=== PATIENT | male | born 1985 | race Hispanic/Latino ===

== ENCOUNTER 2019-02-21 21:52 | Emergency (ER) | payer OTHER ==
[2019-02-21 22:13] VITALS: BP 123/69; PULSE 68; RESP 16; TEMP 98.4; O2SAT 99
--- NOTE | 2019-02-21 23:17 | ED PDOC ---
Upper Extremity Pain/Injury Time Seen by Provider: 02/21/19 22:15 Chief Complaint (Nursing): Finger,Hand,&Wrist Chief Complaint (Provider): right hand History Per: Patient History/Exam Limitations: no limitations Onset/Duration Of Symptoms: Hrs Current Symptoms Are (Timing): Still Present Quality: "Pain" Pain Scale Rating Of: 7 Additional History Per: Patient Additional Complaint(s): 33 y/o male with no significant medical history, presents with right hand deformity and pain after he punched a wall around 10pm this evening. Past Medical History Reviewed: Historical Data, Nursing Documentation, Vital Signs Vital Signs: Last Vital Signs Temp 98.4 F 02/21/19 22:10 Pulse 68 02/21/19 22:10 Resp 16 02/21/19 22:10 BP 123/69 02/21/19 22:10 Pulse Ox 99 02/21/19 22:10 Primary Care Provider: FAMILY PROVIDER,NO - Medical History PMH: No Chronic Diseases - Surgical History Surgical History: No Surg Hx - Family History Family History: States: Unknown Family Hx - Social History Alcohol: Social Drugs: Denies - Allergies Allergies/Adverse Reactions: Allergies Allergy/AdvReac Type Severity Reaction Status Date / Time No Known Allergies Allergy Verified 02/21/19 22:11 Review of Systems ROS Statement: Except As Marked, All Systems Reviewed And Found Negative Constitutional: Negative for: Fever, Weakness Cardiovascular: Negative for: Chest Pain, Palpitations Respiratory: Negative for: Shortness of Breath, SOB with Exertion Gastrointestinal: Negative for: Nausea, Vomiting, Abdominal Pain Musculoskeletal: Positive for: Hand Pain (Right hand pain and swelling after punching a wall. ) Physical Exam - Reviewed Nursing Documentation Reviewed: Yes Vital Signs Reviewed: Yes - Physical Exam Appears: Positive for: Well, Non-toxic, No Acute Distress Head Exam: Positive for: ATRAUMATIC, NORMAL INSPECTION, NORMOCEPHALIC Skin: Positive for: Normal Color, Warm, DRY Eye Exam: Positive for: Normal appearance, PERRL Neck: Positive for: Normal, Painless ROM, Supple Cardiovascular/Chest: Positive for: Regular Rate, Rhythm Respiratory: Positive for: CNT, Normal Breath Sounds Pulses-Radial (L): 2+ Pulses-Radial (R): 2+ Back: Positive for: Normal Inspection Extremity: Positive for: Tenderness (right hand tenderness pt dorsal aspect of the hand ), Capillary Refill (<2 sc cap refill), Deformity (pos deformity of to 4th and 5th metacarpal area. ), Swelling (dorsal aspect. Patient unable to move 4th and 5th digits.patient has mobility of 1st. 2nd and 3rd ) Neurological/Psych: Positive for: Awake, Alert, Normal Tone, Oriented - ECG O2 Sat by Pulse Oximetry: 99 Medical Decision Making Medical Decision Makin:14 Hand xray reviewed by me: displaced fx of 5th metacarpal bone and fx of 4th metacarpal bone. Dr. Keane called on consult for recommendation. 23:25 Dr. Cassidy recommends patient to stay over night for pre-op testing, OR at 8am. Patient is refusing to stay, he states he will come back to the ED in the morning. Patient is also refusing to have pre-op testing done now, he states he will return in the am. Patient advised to return to ED at 7am, OR time 8am. Advised not to eat or drink 8 hrs prior to arrival to ED. Patient states understanding and agrees with plan. --percocet for pain 23:53 Patient signed out AMA. He was given benefits of stay in hospital and potential risks associated with not returning for repair of fractures. Patient states he understands. Re-iterated importance of no eating and drinking 8 hrs prior to arrival and arrival early to ED for testing. Patient placed in ulnar gutter splint, nuero/charmaine intact post splinting. Patient left with friend, patient states he is taking an uber home. Dr. Horn and Dr. Cassidy aware of patient's plan to return in the am. Disposition - Clinical Impression Clinical Impression: Boxers fracture - Patient ED Disposition Is Patient to be Admitted: No Counseled Patient/Family Regarding: Diagnosis, Need For Followup, Rx Given - Disposition Referrals: Sanford Cassidy MD [Medical Doctor] - Disposition: Against Medical Advice Disposition Time: 23:40 Condition: STABLE Additional Instructions: Return to ED at 7am for pre-op work up and OR. Instructions: Boxer's Fracture - POA Present On Arrival: None
[2019-02-21] MEDS ORDERED: Oxycodone/Acetaminophen 5/325 mg Tab PO STA (23:37)
[2019-02-21] MEDS ORDERED: Oxycodone/Acetaminophen 5/325 mg Tab ONE (23:47)
--- NOTE | 2019-02-22 09:41 | RAD ---
PROCEDURE: Right Hand Radiographs. HISTORY: Injury, hand swelling and pain COMPARISON: None. TECHNIQUE: 3 views obtained. FINDINGS: BONES: There is an oblique mildly displaced fracture traversing the midshaft right 5th metacarpal with dorsal angulation of the proximal aspect of the distal fragment. There is also a relatively nondisplaced oblique fracture traversing the proximal shaft 4th metacarpal. Overlying dorsal soft tissue swelling JOINTS: Normal. No osteoarthritic changes. SOFT TISSUES: As above. OTHER FINDINGS: None. IMPRESSION: There is a mildly displaced fractured midshaft of the right 5th metacarpal and relatively nondisplaced fracture proximal shaft 4th metacarpal.
--- NOTE | 2019-02-22 16:50 | RAD ---
Date of service: 02/21/2019 PROCEDURE: Right Wrist Radiographs. HISTORY: injury COMPARISON: Comparison made with concurrent radiographs of the right hand TECHNIQUE: 4 views obtained. FINDINGS: BONES: There is an oblique mildly displaced fracture traversing the midshaft right 5th metacarpal with dorsal angulation of the proximal aspect of the distal fragment. There is also a relatively nondisplaced oblique fracture traversing the proximal shaft 4th metacarpal. Overlying dorsal soft tissue swelling JOINTS: Normal. No dislocation. SOFT TISSUES: As above OTHER FINDINGS: None. IMPRESSION: There is an oblique mildly displaced fracture traversing the midshaft right 5th metacarpal with dorsal angulation of the proximal aspect of the distal fragment. There is also a relatively nondisplaced oblique fracture traversing the proximal shaft 4th metacarpal. Overlying dorsal soft tissue swelling
== END 2019-02-21 23:46 | disposition left against medical advice (07) ==
LOC: H.ER 21:52
DX: S62.316A Displaced fracture of base of fifth metacarpal bone, right hand, initial encounter for closed fracture (principal); W22.8XXA Striking against or struck by other objects, initial encounter; Y92.89 Other specified places as the place of occurrence of the external cause

== ENCOUNTER 2019-02-22 06:47 | Observation (INO) | payer SELFPAY ==
[2019-02-22] MEDS ORDERED: Sodium Chloride 0.9% 1,000 ML IV STA (07:21)
--- NOTE | 2019-02-22 07:26 | ED PDOC ---
Upper Extremity Pain/Injury Time Seen by Provider: 02/22/19 07:19 Chief Complaint (Provider): Upper Extremity Pain/Injury History Per: Patient History/Exam Limitations: no limitations Onset/Duration Of Symptoms: Hrs Current Symptoms Are (Timing): Still Present Additional Complaint(s): 33 y/o male presents to the ED for right upper extremity injury. Patient was seen last night and diagnosed with a Boxer's fracture to the right hand. Patient was supposed to be admitted for surgery this morning. However, patient wanted to go home and come back this morning. Patient states he has been NPO since 12:30 last night. PMD: no provider Past Medical History Reviewed: Historical Data, Nursing Documentation, Vital Signs - Medical History PMH: No Chronic Diseases - Surgical History Surgical History: No Surg Hx - Family History Family History: States: Unknown Family Hx - Allergies Allergies/Adverse Reactions: Allergies Allergy/AdvReac Type Severity Reaction Status Date / Time No Known Allergies Allergy Verified 02/21/19 22:11 Review of Systems ROS Statement: Except As Marked, All Systems Reviewed And Found Negative Musculoskeletal: Positive for: Arm Pain (boxer fracture surgery) Physical Exam - Reviewed Nursing Documentation Reviewed: Yes Vital Signs Reviewed: Yes - Physical Exam Appears: Positive for: No Acute Distress Extremity: Positive for: Deformity (Right Hand Splinted) Medical Decision Making Medical Decision Making: Time: 719 A/P: -- Will contact Dr. Christina, orthopedist to see if surgery is still scheduled this morning. -- EKG -- CMP -- CBC with Differentials -- PTT -- CXR Two Views -- Sodium Chloride IV 100 mls/r -- Percocet 1 tab PO -- Spoke to Dr. Christina, surgery is still scheduled. Patient will be admitted for surgery. -- Admit to Hospital Scribe Attestation: Documented by Katie Odonnell, acting as a scribe for Kane Zavaleta MD. Provider Scribe Attestation: All medical record entries made by the Scribe were at my direction and personally dictated by me. I have reviewed the chart and agree that the record accurately reflects my personal performance of the history, physical exam, medical decision making, and the department course for this patient. I have also personally directed, reviewed, and agree with the discharge instructions and disposition. Disposition - Clinical Impression Clinical Impression: Boxers fracture - Patient ED Disposition Is Patient to be Admitted: Yes - Disposition Disposition Time: 07:38 Condition: FAIR - Pt Status Changed To: Hospital Disposition Of: Observation - POA Present On Arrival: None
[2019-02-22 08:07] LABS: BASO % 0.4 % (0.0-2.0); EOS # 0.1 K/uL (0.0-0.7); EOS % 1.8 % (0.0-4.0); HEMOGLOBIN 16.4 g/dL (12.0-18.0); LYMPH # 1.5 K/uL (1.0-4.3); LYMPH % 22.2 % (20.0-40.0); MEAN CELL VOLUME 91.4 fl (80.0-94.0); MEAN CORPUSCULAR HEMOGLOBIN 30.7 pg (27.0-31.0); MEAN CORPUSCULAR HGB CONC 33.6 g/dL (33.0-37.0); MEAN PLATELET VOLUME 7.3 fl (7.2-11.7); MONO # 0.4 K/uL (0.0-0.8); MONO % 6.4 % (0.0-10.0); NEUT # 4.7 K/uL (1.8-7.0); NEUT % 69.2 % (50.0-75.0); NRBC % 0.1 % (0.0-0.0); RBC 5.34 Mil/uL (4.40-5.90); RED CELL DISTRIBUTION WIDTH 14.2 % (11.5-14.5); WHITE BLOOD COUNT 6.9 K/uL (4.8-10.8)
[2019-02-22 08:18] LABS: ALB/GLOB RATIO 1.6 (1.0-2.1); ALBUMIN 4.9 g/dL (3.5-5.0); ALT/SGPT 32 U/L (21-72); AST/SGOT 24 U/L (17-59); BLOOD UREA NITROGEN 14 mg/dl (9-20); CALCIUM 9.5 mg/dL (8.4-10.2); GFR NON-AFRICAN AMERICAN > 60
[2019-02-22 08:25] LABS: PROTHROMBIN TIME 11.5 Seconds (9.8-13.1)
--- NOTE | 2019-02-22 08:31 | RAD ---
Date of service: 02/22/2019 HISTORY: Hand fracture COMPARISON: No prior. TECHNIQUE: Chest PA and lateral views FINDINGS: LUNGS: No active pulmonary disease. PLEURA: No significant pleural effusion identified. No pneumothorax apparent. CARDIOVASCULAR: No aortic atherosclerotic calcification present. Normal cardiac size. No pulmonary vascular congestion. OSSEOUS STRUCTURES: No significant abnormalities. VISUALIZED UPPER ABDOMEN: Normal. OTHER FINDINGS: None. IMPRESSION: No active disease.
[2019-02-22 09:13] VITALS: BMI 25.4
[2019-02-22] MEDS ORDERED: Lidocaine 2% w Epi 1:100,000 Inj IJ ONE (09:18)
[2019-02-22] MEDS ORDERED: Lidocaine 1% Inj (20ml) ONE (09:18)
[2019-02-22] MEDS ORDERED: Midazolam 2 MG/2 ML VIAL ONE (09:33)
[2019-02-22] MEDS ORDERED: Propofol 10 mg/ml Inj (20 ML) ONE (09:33)
[2019-02-22] MEDS ORDERED: Sodium Chloride 0.9% 1,000 ML IV ONE (10:12)
--- NOTE | 2019-02-22 11:21 | PCM.SURG1 ---
Surgeon's Initial Post Op Note - Surgeon's Notes Surgeon: siva Flight Agent: none Type of Anesthesia: General LMA Pre-Operative Diagnosis: R 4th and 5th metacarpal fx Operative Findings: see dictation Post-Operative Diagnosis: same Operation Performed: CRPP 4 and 5 metacarpals Specimen/Specimens Removed: none Estimated Blood Loss: EBL {In ML}: 0 Date of Surgery/Procedure: 02/22/19 Time of Surgery/Procedure: 10:00
[2019-02-22] MEDS ORDERED: Oxycodone/Acetaminophen 5/325 mg Tab PO PRN (11:24)
[2019-02-22] MEDS ORDERED: Sodium Chloride 0.9% 1,000 ML IV SCH (11:30)
[2019-02-22] MEDS ORDERED: Oxycodone/Acetaminophen 5/325 mg Tab ONE (11:33)
--- NOTE | 2019-02-22 13:08 | OP ---
PROCEDURE DATE: 02/22/2019 PREOPERATIVE DIAGNOSES: Displaced right fourth and fifth metacarpal fractures, closed. POSTOPERATIVE DIAGNOSES: Displaced right fourth and fifth metacarpal fractures, closed. PROCEDURES: 1. Right fifth metacarpal fracture, closed reduction and percutaneous pinning. 2. Right fourth metacarpal fracture, closed reduction and percutaneous pinning. SURGEON: Sanford Cassidy MD ANESTHESIA: LMA. SPECIMENS: None. COMPLICATIONS: None. BLOOD LOSS: Zero. INDICATIONS: A 33-year-old male who presents to the [facility] for displaced closed fracture of the fourth and fifth metacarpal shaft. Due to displacement and instability, the patient is indicated for the above surgery. Risks and benefits were explained, which included but not limited to bleeding, infection, tendon, nerve or vessel injury, instability, chronic pain, potential need for additional surgery in the future. The patient understands the above risks and elected to proceed. Informed consent was obtained. DESCRIPTION OF PROCEDURE: The patient was brought to the operating room and placed supine on the operating room table. After general anesthesia was given and prophylactic antibiotics, the right upper extremity was prepped and draped in a standard surgical fashion. A time-out was performed. Next, closed reduction of the fourth and fifth metacarpal shaft was undertaken. This included traction and flexion of the digits under fluoroscopic guidance. After appropriate reduction was achieved, a series of 4.5 Sally wires were passed starting at the fifth metacarpal head across to the fourth metacarpal head to secure the distal fracture fragments of the fourth and fifth metacarpals. Next, in similar technique, two 4.5 mm Sally wires were passed to the proximal fracture segments across the bases of the fifth metacarpal shaft through the fourth metacarpal shaft and into the third metacarpal shaft. This reduced the fourth and fifth metacarpal shafts and provided stability. Fluoroscopic images confirmed the religious of alignment, length, and rotation of the fourth and fifth metacarpals. The wires were . Sally wires were cut short protruding through the skin and bent with caps placed on top of them. Xeroform dressing was placed followed by sterile dressing and 4-inch plaster splint on the ulnar gutter position. The patient tolerated the procedure well and returned to recovery room in excellent condition. He will follow up with me in one week in the office for change of dressing and splint. Sanford Cassidy MD [facility] # [id number]
[2019-02-22 13:58] VITALS: BP 124/84; PULSE 53; RESP 20; TEMP 97.5; O2SAT 100
--- NOTE | 2019-02-22 16:48 | RAD ---
PROCEDURE: Right Hand Radiographs. HISTORY: Postoperative assessment COMPARISON: None. TECHNIQUE: 3 views obtained through a plaster calderon splint which obscures fine soft tissue detail FINDINGS: BONES: ORIF previously noted fractures of the 5th and 4th metacarpals JOINTS: Normal. No osteoarthritic changes. SOFT TISSUES: Normal. OTHER FINDINGS: None. IMPRESSION: ORIF previously noted fractures 5th and 4th metacarpals
--- NOTE | 2019-02-22 21:57 | CARD ---
APPROVED REPORT Date of service: 02/22/2019 EKG Measurement Heart [id number] <Conclusion> Sinus bradycardia Incomplete right bundle branch block Borderline ECG
--- NOTE | 2019-02-22 22:23 | CON ---
DATE: 02/22/2019 REASON FOR CONSULTATION: Right hand trauma. HISTORY OF PRESENT ILLNESS: A 33-year-old male who presents to [facility] with complaints of right hand pain and swelling. The patient punched a hard object with his right hand. He presents with a closed deformity. Admission x-rays were taken and showed displaced fifth and fourth metacarpal shaft fractures with hypoflexion of the fifth metacarpal bone. It seems the joints are well aligned and reduced. PHYSICAL EXAMINATION: The right hand is swollen, Skin is intact. The patient has difficulty in making a full fist with the swelling. No gross malrotation of the digits. Neurovascularly intact. ASSESSMENT: Right hand fourth and fifth metacarpal shaft fractures with instability and displacement. PLAN: Discussed the above findings with the patient. Due to the instability and swelling, I recommended urgent surgery and the surgery will include closed versus open reduction and fixation of the fourth and fifth metacarpal fractures. The risks and benefits were explained. The patient agrees to above and taken to surgery for the above procedure. Sanford Cassidy MD
== END 2019-02-22 14:30 | disposition home or self-care (01) ==
LOC: H.ER 06:47 → H.ERHOLD 07:27 → H.MEDSURG1 12:35
DX: S62.324A Displaced fracture of shaft of fourth metacarpal bone, right hand, initial encounter for closed fracture (principal); S62.326A Displaced fracture of shaft of fifth metacarpal bone, right hand, initial encounter for closed fracture; W22.8XXA Striking against or struck by other objects, initial encounter; Y92.9 Unspecified place or not applicable
CPT/HCPCS: 26608; 71046; 73130; 80053; 85025; 85610; 93005; 96360; 96361; 99285; C1713; G0378; J0690; J1885; J2001; J2250; J2405; J2704; J3010; J7030